=== PATIENT | male | born 1995 | race Caucasian/White ===

== ENCOUNTER 2020-12-28 05:03 | Emergency (ER) | payer SELFPAY ==
[2020-12-28] MEDS ORDERED: ACETAMINOPHEN 500 MG TAB ONE (06:23)
[2020-12-28 07:39] LABS: Absolute Lymphocytes (CBC) 0.8 K/uL (0.7-4.9); Basophils % 0.3 % (0-1.3); Hematocrit 39.4 % (39.6-49.0); Lymphocytes % 7.8 % (15.3-44.8); MPV 8.4 fL (7.6-11.3); RBC Red Blood Cell Count 4.82 M/uL (4.33-5.43)
[2020-12-28 08:00] LABS: ALT/SGPT 24 U/L (12-78); AST/SGOT 18 U/L (15-37); Albumin 3.6 g/dL (3.4-5.0); Alkaline Phosphatase 65 U/L (45-117); BUN Blood Urea Nitrogen 13 mg/dL (7-18); Bicarbonate 26 mmol/L (21-32); Bilirubin Direct 0.1 mg/dL (0-0.2); Bilirubin Total 0.3 mg/dL (0.2-1.0); Glucose Level 98 mg/dL (74-106); Potassium 3.6 mmol/L (3.5-5.1); Protein, Total 7.1 g/dL (6.4-8.2); Sodium Level 141 mmol/L (136-145)
[2020-12-28] MEDS ORDERED: NA CHLORIDE 0.9% 1,000 ML ONE (08:01)
[2020-12-28] MEDS ORDERED: CEFTRIAXONE 1000 MG/VIAL ONE (08:01)
[2020-12-28] MEDS ORDERED: CEFTRIAXONE/SWI 1gm 1 GM/10 ML SYR ONE (08:04)
--- NOTE | 2020-12-28 08:42 | RAD REPORT ---
EXAM DESCRIPTION: CT - Soft Tissue Neck W/Contr - 12/28/2020 8:30 am CLINICAL HISTORY: Neck pain with sore throat COMPARISON: None. TECHNIQUE: Computed axial tomography of the neck was obtained. 50 cc Isovue 300 was administered in travenously. Coronal and sagittal reconstruction was performed. All CT scans are performed using dose optimization technique as appropriate and may include automated exposure control or mA/KV adjustment according to patient size. FINDINGS: The right and left tonsils are prominent. The parapharyngeal fat is clear. The remainder of pharynx, tongue base, larynx and subglottic trachea appear unremarkable The parotid, submandibular and thyroid glands appear unremarkable. Stranding within subcutaneous and submental and perimandibular fat. Several left submandibular lymph nodes. The largest measures 2.3 x 1.8 centimeters Mild to moderate mucoperiosteal left maxillary sinus IMPRESSION: Left neck lymphadenopathy. This may be reactive in nature or neoplastic. Follow-up ultra sound is recommended 6 weeks to assess stability/resolution. Stranding within subcutaneous and submental and perimandibular fat probably a cellulitis Prominence of the right and left tonsils may indicate hypertrophy or tonsillitis
--- NOTE | 2020-12-28 09:50 | ER ---
Nurse's Notes [facility] Name: Du Gross Age: 25 yrs Sex: Male : 1995 Arrival Date: 12/28/2020 Time: 05:10 Bed 14 Private MD: Diagnosis: Acute tonsillitis Presentation: 12/28 05:17 Chief complaint: Patient states: C/O left cheek pain, left ear pain and fever for 3 wh days. Coronavirus screen: Client denies travel out of the [place] in the last 14 days. At this time, the client does not indicate any symptoms associated with coronavirus-19. Ebola Screen: Patient negative for fever greater than or equal to 101.5 degrees Fahrenheit, and additional compatible Ebola Virus Disease symptoms Patient denies exposure to infectious person. Initial Sepsis Screen: Does the patient meet any 2 criteria? No. Patient's initial sepsis screen is negative. Does the patient have a suspected source of infection? Yes: Bone or joint infection. Risk Assessment: Do you want to hurt yourself or someone else? Patient reports no desire to harm self or others. Onset of symptoms was December 28, 2020. 05:17 Method Of Arrival: Ambulatory 05:17 Acuity: JACKLYN 4 Historical: - Allergies: 05:19 No Known Allergies; - Home Meds: 05:19 None [Active]; - PMHx: 05:19 None; - PSHx: 05:19 None; - Immunization history:: Adult Immunizations up to date. - Social history:: Smoking status: Patient/guardian denies using. Screenin:20 Abuse screen: Denies threats or abuse. Denies injuries from another. Nutritional screening: No deficits noted. Tuberculosis screening: No symptoms or risk factors identified. Fall Risk None identified. Assessment: 05:19 General: Appears in no apparent distress. uncomfortable, Behavior is calm, cooperative, wh appropriate for age. Pain: Complains of pain in left ear, left cheek and left jaw Pain began 2-3 days ago. Neuro: Level of Consciousness is awake, alert, obeys commands, Oriented to person, place, time, situation, Appropriate for age. Cardiovascular: Capillary refill < 3 seconds. Respiratory: Airway is patent Respiratory effort is even, unlabored, Respiratory pattern is regular, symmetrical. GI: Abdomen is flat, non-distended. : No signs and/or symptoms were reported regarding the genitourinary system. EENT: Oral mucosa is moist. Good dentition noted. Derm: Skin is intact, is healthy with good turgor, Skin is pink, warm \T\ dry. normal. Musculoskeletal: Circulation, motion, and sensation intact. 07:52 Reassessment: pt transferred to NH via wheelchair. tr6 09:44 Reassessment: MD Davis at bedside. tr6 Vital Signs: 05:17 BP 133 / 81; Pulse 90; Resp 18; Temp 101.7; Pulse Ox 98% ; Weight 77.11 kg; Height 5 wh ft. 10 in. (177.80 cm); Pain 8/10; 05:17 Body Mass Index 24.39 (77.11 kg, 177.80 cm) ED Course: 05:10 Patient arrived in ED. cf2 05:19 Triage completed. 05:20 Patient has correct armband on for positive identification. Bed in low position. Call light in reach. Side rails up X 1. Pulse ox on. NIBP on. 05:20 Arm band placed on right wrist. 05:21 Juliane Hutson, RN is Primary Nurse. 05:48 Marquise Perdomo MD is Attending Physician. mh7 06:39 Rapid Strep Sent. ds4 07:25 No provider procedures requiring assistance completed. tr6 07:30 Initial lab(s) drawn, by co, sent to lab. Inserted saline lock: 20 gauge in right dh3 forearm, using aseptic technique. Blood collected. 08:30 CT Soft Tissue Neck W/contr In Process Unspecified. EDMS 09:49 Attending Physician role handed off by Marquise Perdomo MD ma2 09:49 Regi Heredia MD is Attending Physician. ma2 09:52 IV discontinued, intact, bleeding controlled, No redness/swelling at site. Pressure tr6 dressing applied. Administered Medications: 06:06 Drug: Tylenol 1000 mg Route: PO; wh 10:06 Drug: Ibuprofen 400 mg Route: PO; tr6 Outcome: 09:50 Discharge ordered by . ma2 09:53 Discharged to home ambulatory. tr6 09:53 Condition: stable 09:53 Discharge instructions given to patient, Instructed on discharge instructions, follow up and referral plans. safety practices, Demonstrated understanding of instructions, follow-up care, medications. 09:59 Prescriptions given X 3. tr6 10:15 Patient left the ED. tr6 Signatures: Dispatcher [employer] [place] 4 Jessica Lai 3 Juliane Hutson, SHELBI RN Regi Heredia MD MD ia2 Delano Atkinson2 Marquise Perdomo MD MD 7 Pinky Amezcua RN RN tr6
--- NOTE | 2020-12-28 09:51 | EDPHYS ---
Physician Documentation [facility] Name: Du Gross Age: 25 yrs Sex: Male : 1995 Arrival Date: 12/28/2020 Time: 05:10 Bed 14 Private MD: ED Physician Regi Heredia HPI: 12/28 07:12 This 25 yrs old Male presents to ER via Ambulatory with complaints of Fever, mh7 Mouth Swelling. 07:13 The patient reports fever, not measured (subjective). Onset: The symptoms/episode mh7 began/occurred 3 day(s) ago. Modifying factors: there are no obvious modifying factors. Associated signs and symptoms: Pertinent positives: earache, sore throat, mouth pain. Severity of symptoms: At their worst the symptoms were moderate last night, in the emergency department the symptoms are unchanged. Historical: - Allergies: 05:19 No Known Allergies; wh - Home Meds: 05:19 None [Active]; wh - PMHx: 05:19 None; wh - PSHx: 05:19 None; wh - Immunization history:: Adult Immunizations up to date. - Social history:: Smoking status: Patient/guardian denies using. ROS: 07:13 Eyes: Negative for injury, pain, redness, and discharge. mh7 07:13 Neck: Negative for injury, pain, and swelling, Cardiovascular: Negative for chest pain, palpitations, and edema, Respiratory: Negative for shortness of breath, cough, wheezing, and pleuritic chest pain, Abdomen/GI: Negative for abdominal pain, nausea, vomiting, diarrhea, and constipation, Back: Negative for injury and pain, : Negative for injury, bleeding, discharge, and swelling, MS/Extremity: Negative for injury and deformity, Skin: Negative for injury, rash, and discoloration, Neuro: Negative for headache, weakness, numbness, tingling, and seizure, Psych: Negative for depression, anxiety, suicide ideation, homicidal ideation, and hallucinations, Allergy/Immunology: Negative for hives, rash, and allergies, Endocrine: Negative for neck swelling, polydipsia, polyuria, polyphagia, and marked weight changes, Hematologic/Lymphatic: Negative for swollen nodes, abnormal bleeding, and unusual bruising. 07:13 ENT: Positive for ear pain, Gum pain sore throat. Exam: 07:13 Constitutional: This is a well developed, well nourished patient who is awake, alert, mh7 and in no acute distress. Head/Face: Normocephalic, atraumatic. 07:13 Eyes: Pupils equal round and reactive to light, extra-ocular motions intact. Lids and lashes normal. Conjunctiva and sclera are non-icteric and not injected. Cornea within normal limits. Periorbital areas with no swelling, redness, or edema. 07:13 Neck: Trachea midline, no thyromegaly or masses palpated, and no cervical lymphadenopathy. Supple, full range of motion without nuchal rigidity, or vertebral point tenderness. No Meningismus. Chest/axilla: Normal chest wall appearance and motion. Nontender with no deformity. No lesions are appreciated. Cardiovascular: Regular rate and rhythm with a normal S1 and S2. No gallops, murmurs, or rubs. Normal PMI, no JVD. No pulse deficits. Respiratory: Lungs have equal breath sounds bilaterally, clear to auscultation and percussion. No rales, rhonchi or wheezes noted. No increased work of breathing, no retractions or nasal flaring. Abdomen/GI: Soft, non-tender, with normal bowel sounds. No distension or tympany. No guarding or rebound. No evidence of tenderness throughout. Back: No spinal tenderness. No costovertebral tenderness. Full range of motion. Skin: Warm, dry with normal turgor. Normal color with no rashes, no lesions, and no evidence of cellulitis. MS/ Extremity: Pulses equal, no cyanosis. Neurovascular intact. Full, normal range of motion. Neuro: Awake and alert, GCS 15, oriented to person, place, time, and situation. Cranial nerves II-XII grossly intact. Motor strength 5/5 in all extremities. Sensory grossly intact. Cerebellar exam normal. Normal gait. Psych: Awake, alert, with orientation to person, place and time. Behavior, mood, and affect are within normal limits. 07:13 Head/face: 07:13 ENT: External ear(s): are unremarkable, Ear canal(s): are normal, TM's: are normal, Nose: is normal, Mouth: Posterior pharynx: Airway: normal, Tonsils: bilaterally enlarged, with erythema, with exudate, Uvula: normal, swelling, is not appreciated, erythema, that is moderate, exudate, that is moderate, peritonsillar mass, is not appreciated, pooling of secretions, is not appreciated, Dental exam: normal, Voice: is normal. Vital Signs: 05:17 BP 133 / 81; Pulse 90; Resp 18; Temp 101.7; Pulse Ox 98% ; Weight 77.11 kg; Height 5 wh ft. 10 in. (177.80 cm); Pain 8/10; 05:17 Body Mass Index 24.39 (77.11 kg, 177.80 cm) wh MDM: 09:49 Differential diagnosis: viral Infection, URI. Data reviewed: vital signs, nurses notes. ma2 Counseling: I had a detailed discussion with the patient and/or guardian regarding: the historical points, exam findings, and any diagnostic results supporting the discharge/admit diagnosis, the presence of at least one elevated blood pressure reading (>120/80) during this emergency department visit, the need for outpatient follow up. Response to treatment: the patient's symptoms have markedly improved after treatment. 09:50 Patient medically screened. ma2 12/28 06:37 Order name: Rapid Strep; Complete Time: 07:03 [facility] 12/28 06:59 Order name: Throat Culture EDMS 12/28 07:19 Order name: CBC with Diff; Complete Time: 09:27 [facility] 12/28 07:19 Order name: Basic Metabolic Panel; Complete Time: 09:27 [facility] 12/28 07:19 Order name: LFT's; Complete Time: 09:27 [facility] 12/28 07:20 Order name: CT Soft Tissue Neck W/contr; Complete Time: 09:27 [facility] 12/28 07:19 Order name: Saline Lock; Complete Time: 07:25 7 Administered Medications: 06:06 Drug: Tylenol 1000 mg Route: PO; 10:06 Drug: Ibuprofen 400 mg Route: PO; tr6 Disposition: 12/28/20 09:50 Discharged to Home. Impression: Acute tonsillitis. - Condition is Stable. - Discharge Instructions: Tonsillitis. - Prescriptions for Diclofenac Sodium 75 mg Oral Tablet Sustained Release - take 1 tablet by ORAL route 2 times per day; 30 tablet. Zithromax Z- Willis 250 mg Oral Tablet - take 1 tablet by ORAL route as directed for 5 days Day 1 - take two (2) tablets one time. Day 2, 3, 4 , 5 take one (1) tablet once daily.; 6 tablet. Medrol (Willis) 4 mg Oral Tablets, Dose Pack - take 1 tablet by ORAL route as directed - follow package instructions; 1 packet. - Medication Reconciliation Form, Thank You Letter, Antibiotic Education, Prescription Opioid Use form. - Follow up: Private Physician; When: Tomorrow; Reason: Continuance of care. Signatures: Dispatcher [employer] EDJuliane Leonard, RN RN Regi Heredia MD MD ma2 Marquise Perdomo MD MD 7 Pinky Amezcua RN RN tr6 Corrections: (The following items were deleted from the chart) 10:15 09:50 12/28/2020 09:50 Discharged to Home. Impression: Acute tonsillitis. Condition is tr6 Stable. Forms are Medication Reconciliation Form, Thank You Letter, Antibiotic Education, Prescription Opioid Use. Follow up: Private Physician; When: Tomorrow; Reason: Continuance of care. ma2
[2020-12-28] MEDS ORDERED: IBUPROFEN 400 MG TAB ONE (10:24)
[2020-12-28 10:40] VITALS: BP 133/81; TEMP 101.7; O2SAT 98
== END 2020-12-28 10:15 | disposition home or self-care (01) ==
LOC: ER 05:03
DX: J03.90 Acute tonsillitis, unspecified (principal)
CPT/HCPCS: 36415; 70491; 80048; 80076; 85025; 87070; 87081; 99284; J0696; J7030; Q9967